=== PATIENT | male | born 1980 | race Two or more races ===

== ENCOUNTER 2021-08-31 22:11 | Emergency (ER) | payer OTHER ==
[~2021-08-31] VITALS: Ht 157.5 cm; Wt 80.3 kg
[2021-09-01 01:00] LABS: Basophils # (auto) 0 10 ^3/uL (0-0.2); Basophils % (auto) 0.3 % (0.0-2.0); Eosinophils # (auto) 0 10 ^3/uL (0-0.8); Eosinophils % (auto) 0.4 % (0.0-7.0); Hematocrit 40.3 % (36.0-46.0); Hemoglobin 13.7 g/dL (12.2-16.2); Lymphocytes # (auto) 0.7 10 ^3/uL (0.4-5.4); Lymphocytes % (auto) 11.2 % (10.0-50.0); Mean Corpuscular Hemoglobin 29.7 pg (28.0-32.0); Mean Corpuscular Volume 87.3 fL (80.0-100.0); Monocytes # (auto) 0.4 10 ^3/uL (0-1.3); Monocytes % (auto) 6.9 % (0.0-12.0); Neutrophils # (auto) 5.1 10 ^3/uL (1.6-8.6); Neutrophils % (auto) 81.2 % (37.0-80.0); Nucleated Red Blood Cells % 0.1 %; Red Blood Cells 4.61 10^6/uL (4.0-5.20); Red Cell Distribution Width 16.9 % (11.8-14.3); White Blood Cell 6.3 10^3/uL (4.4-10.8)
[2021-09-01 01:07] LABS: Albumin 3.8 g/dL (3.4-5.0); Calcium 8.2 mg/dL (8.5-10.1); Magnesium 2.5 mg/dL (1.6-2.6); Potassium 3.7 mmol/L (3.5-5.1)
[2021-09-01 01:09] LABS: BUN/Creatinine Ratio 17.7
[2021-09-01 01:11] LABS: Bilirubin, Total 0.4 mg/dL (0.2-1.0); Total Protein 8.2 g/dL (6.4-8.2)
[2021-09-01] MEDS ORDERED: chlordiazePOXIDE HCL 25 MG CAP PO ONE (02:00)
[2021-09-01] MEDS ORDERED: FAMOTIDINE 20 MG TAB PO ONE (04:15)
[2021-09-01] MEDS ORDERED: LIDOCAINE VISCOUS 2% 15ML UD PO ONE (04:15)
[2021-09-01] MEDS ORDERED: ALUM & MAG HYDROX-SIMETH LIQ(MAALOX) 30 ML PO ONE (04:15)
[2021-09-01 04:28] LABS: Amphetamine Screen, Urine NEGATIVE (NEGATIVE); Barbiturate Scree,Urine NEGATIVE (NEGATIVE); Benzodiazephine Screen, Urine NEGATIVE (NEGATIVE); Cannabinoid Screen, Urine NEGATIVE (NEGATIVE); Cocaine Screen, Urine NEGATIVE (NEGATIVE); Opiate Scree,Urine NEGATIVE (NEGATIVE); Phencyclidine Screen, Urine NEGATIVE (NEGATIVE)
[2021-09-01 04:50] LABS: Urine Bacteria FEW /hpf (None Seen); Urine Blood Negative /uL (Negative); Urine Mucus FEW (None Seen); Urine Specific Gravity 1.036 (1.001-1.035); Urine WBC 1 /hpf (0 - 3)
[2021-09-01] MEDS ORDERED: ONDANSETRON HCL 4 MG/2 ML VIAL IV ONE ×2 (07:15→12:45)
[2021-09-01] MEDS ORDERED: FOLIC ACID 1 MG in D5W 5% 50 ML INJ ONE (07:45)
[2021-09-01] MEDS ORDERED: THIAMINE 100mg/ml INJ (200mg/2ml VIAL) IV ONE (07:45)
[2021-09-01] MEDS ORDERED: LORazepam 2MG/ML-1ML VIAL IV ONE (07:45)
[2021-09-01] MEDS ORDERED: SODIUM CHLORIDE 0.9% 1,000 ML IV ONE ×2 (07:45→12:45)
[2021-09-01] MEDS ORDERED: CHL25C GT (14:28)
[2021-09-01] MEDS ORDERED: PANT1INJ3 IV (14:28)
[2021-09-01] MEDS ORDERED: FOLITAB22 PO (14:28)
[2021-09-01] MEDS ORDERED: METO-281 PO (14:28)
[2021-09-01 14:52] VITALS: BP 143/92
== END 2021-09-01 14:55 | disposition home or self-care (01) ==
LOC: EDSEX 22:11 → ER 22:11
DX: K76.0 Fatty (change of) liver, not elsewhere classified (principal); K42.9 Umbilical hernia without obstruction or gangrene; R74.01 Elevation of levels of liver transaminase levels; K29.20 Alcoholic gastritis without bleeding; F10.230 Alcohol dependence with withdrawal, uncomplicated
CPT/HCPCS: 36415; 74176; 80053; 80307; 80320; 81001; 83735; 85025; 93005; 96361; 96365; 96375; 96376; 99285; J2060; J2405; J3411; J7030; J7060

== ENCOUNTER 2022-06-26 12:14 | Inpatient (IN) | payer MEDICAID, OTHER ==
[~2022-06-26] VITALS: Ht 165.1 cm; Wt 70.0 kg
[~2022-06-26 12:14] MED LIST: CHL25C GT; FOLITAB22 PO; METO-281 PO; PANT1INJ3 IV
[2022-06-26 13:28] LABS: Basophils # (auto) 0.1 10 ^3/uL (0-0.2); Basophils % (auto) 1.2 % (0.0-2.0); Eosinophils # (auto) 0 10 ^3/uL (0-0.8); Eosinophils % (auto) 0.2 % (0.0-7.0); Hematocrit 38.7 % (41.0-53.0); Lymphocytes # (auto) 1.3 10 ^3/uL (0.4-5.4); Lymphocytes % (auto) 17.5 % (10.0-50.0); Mean Corpuscular Hemoglobin 32.9 pg (28.0-32.0); Mean Corpuscular Hgb Conc. 33.7 g/dL (32.0-36.0); Mean Corpuscular Volume 97.8 fL (80.0-100.0); Monocytes # (auto) 0.4 10 ^3/uL (0-1.3); Monocytes % (auto) 5.3 % (0.0-12.0); Neutrophils # (auto) 5.8 10 ^3/uL (1.6-8.6); Neutrophils % (auto) 75.8 % (37.0-80.0); Nucleated Red Blood Cells % 0.1 %; Red Blood Cells 3.96 10^6/uL (4.5-5.90); Red Cell Distribution Width 15.2 % (11.8-14.3); White Blood Cell 7.7 10^3/uL (4.4-10.8)
[2022-06-26] MEDS ORDERED: LACTATED RINGER'S 1,000 ML IV ONE (14:30)
[2022-06-26] MEDS ORDERED: THIAMINE 100mg/ml INJ (200mg/2ml VIAL) IV ONE (14:45)
[2022-06-26] MEDS ORDERED: LORazepam 2MG/ML-1ML VIAL IV ONE (14:45)
[2022-06-26] MEDS ORDERED: chlordiazePOXIDE HCL 25 MG CAP PO ONE (14:45)
[2022-06-26] MEDS ORDERED: FOLIC ACID 1 MG in D5W 5% 50 ML INJ ONE (14:45)
[2022-06-26 15:12] LABS: Albumin 3.2 g/dL (3.4-5.0); BUN/Creatinine Ratio 18.4; Calcium 8.4 mg/dL (8.5-10.1); Magnesium 1.9 mg/dL (1.6-2.6); Potassium 3.2 mmol/L (3.5-5.1)
[2022-06-26 15:15] LABS: Bilirubin, Total 1.6 mg/dL (0.2-1.0)
[2022-06-26] MEDS ORDERED: POTASSIUM CHL 20 Meq TABLET PO ONE (17:30)
[2022-06-26] MEDS ORDERED: ONDANSETRON HCL 4 MG/2 ML VIAL IV PRN (21:30)
[2022-06-26] MEDS ORDERED: DOCUSATE SOD 100 MG CAP PO PRN (21:30)
[2022-06-26] MEDS ORDERED: HYDROcodone-ACET 5/325MG TAB PO PRN (21:30)
[2022-06-26] MEDS ORDERED: IBUPROFEN 400 MG TAB PO PRN (21:30)
[2022-06-26] MEDS ORDERED: LORazepam 2MG/ML-1ML VIAL IV PRN (21:30)
[2022-06-26 23:09] VITALS: BP 116/86
[2022-06-26] MEDS ORDERED: NITROGLYCERIN 0.4 MG SL TAB SL PRN (23:15)
[2022-06-26] MEDS ORDERED: ALBUTEROL SULF 2.5 MG/0.5ML(0.5%) NEB SOLN NEB PRN (23:15)
[2022-06-26] MEDS ORDERED: MORPHINE SULFATE INJ 2 MG/ml SYRG IV PRN ×2 (23:15)
[2022-06-26] MEDS ORDERED: IPRATROPIUM BROM 0.5 MG/2.5ML INH SOL NEB PRN (23:15)
[2022-06-27] MEDS: SODIUM CHLOR 0.9% PF (SALINE LOCK) 10ML VIAL/SYR IV SCH ×4 (02:25→22:48)
[2022-06-27] MEDS ORDERED: FOLIC ACID 1 MG TAB ONE (02:30)
[2022-06-27] MEDS ORDERED: FOLIC ACID 1 MG TAB PO ONE (02:45)
[2022-06-27 05:00] LABS: Urine Bacteria NONE SEEN /hpf (None Seen); Urine Blood Negative /uL (Negative); Urine Mucus FEW (None Seen); Urine WBC 1 /hpf (0 - 3)
[2022-06-27 05:06] LABS: Eosinophils # (auto) 0 10 ^3/uL (0-0.8); Hemoglobin 12.1 g/dL (13.5-17.5); Lymphocytes # (auto) 1.3 10 ^3/uL (0.4-5.4); Mean Corpuscular Hgb Conc. 33.7 g/dL (32.0-36.0); Monocytes # (auto) 0.6 10 ^3/uL (0-1.3); Neutrophils # (auto) 4.8 10 ^3/uL (1.6-8.6)
[2022-06-27 05:08] LABS: Basophils # (auto) 0.1 10 ^3/uL (0-0.2); Basophils % (auto) 1.1 % (0.0-2.0); Eosinophils % (auto) 0.5 % (0.0-7.0); Lymphocytes % (auto) 19.2 % (10.0-50.0); Mean Corpuscular Hemoglobin 33.2 pg (28.0-32.0); Mean Corpuscular Volume 98.7 fL (80.0-100.0); Monocytes % (auto) 8.2 % (0.0-12.0); Red Blood Cells 3.64 10^6/uL (4.5-5.90); Red Cell Distribution Width 15.4 % (11.8-14.3); White Blood Cell 6.8 10^3/uL (4.4-10.8)
[2022-06-27 05:39] LABS: Potassium 3.6 mmol/L (3.5-5.1)
[2022-06-27 05:45] LABS: Albumin 2.8 g/dL (3.4-5.0); BUN/Creatinine Ratio 25.5; Bilirubin, Total 1.6 mg/dL (0.2-1.0); Calcium 7.9 mg/dL (8.5-10.1)
[2022-06-27] MEDS: FOLIC ACID 1 MG TAB PO SCH (10:24)
[2022-06-27] MEDS: FAMOTIDINE (10MG/ML) 2ML VL IV SCH (10:24)
[2022-06-27] MEDS: MULTIPLE VITAMIN TAB PO SCH (10:25)
[2022-06-27] MEDS: THIAMINE HCL 100 MG TAB PO SCH (10:25)
[2022-06-27 11:50] VITALS: BP 127/82
[2022-06-27] MEDS ORDERED: chlordiazePOXIDE HCL 25 MG CAP PO SCH (12:00)
[2022-06-27 12:12] LABS: Amphetamine Screen, Urine NEGATIVE (NEGATIVE); Barbiturate Scree,Urine NEGATIVE (NEGATIVE); Benzodiazephine Screen, Urine NEGATIVE (NEGATIVE); Cannabinoid Screen, Urine NEGATIVE (NEGATIVE); Cocaine Screen, Urine NEGATIVE (NEGATIVE); Opiate Scree,Urine NEGATIVE (NEGATIVE); Phencyclidine Screen, Urine NEGATIVE (NEGATIVE)
[2022-06-27] MEDS: chlordiazePOXIDE HCL 25 MG CAP PO SCH ×2 (16:06→21:07)
[2022-06-27 18:57] LABS: INR 1.08 (0.9-1.15)
[2022-06-27] MEDS: D5W/SOD CHLO 0.9% 1,000 ML IV SCH (19:49)
[2022-06-27 20:00] VITALS: BP 123/91
[2022-06-27 22:00] VITALS: BP 123/91
[2022-06-28 05:00] VITALS: BP 120/84
[2022-06-28] MEDS: chlordiazePOXIDE HCL 25 MG CAP PO SCH ×5 (05:24→15:00)
[2022-06-28] MEDS: D5W/SOD CHLO 0.9% 1,000 ML IV SCH (05:29)
[2022-06-28] MEDS: SODIUM CHLOR 0.9% PF (SALINE LOCK) 10ML VIAL/SYR IV SCH ×2 (05:29→14:01)
[2022-06-28 06:03] LABS: Basophils # (auto) 0.1 10 ^3/uL (0-0.2); Basophils % (auto) 1.9 % (0.0-2.0); Eosinophils # (auto) 0.1 10 ^3/uL (0-0.8); Eosinophils % (auto) 1.5 % (0.0-7.0); Hematocrit 37.6 % (41.0-53.0); Hemoglobin 12.7 g/dL (13.5-17.5); Lymphocytes # (auto) 0.9 10 ^3/uL (0.4-5.4); Lymphocytes % (auto) 13.2 % (10.0-50.0); Mean Corpuscular Hgb Conc. 33.7 g/dL (32.0-36.0); Mean Corpuscular Volume 97.9 fL (80.0-100.0); Monocytes # (auto) 0.5 10 ^3/uL (0-1.3); Monocytes % (auto) 7.2 % (0.0-12.0); Neutrophils # (auto) 5.2 10 ^3/uL (1.6-8.6); Neutrophils % (auto) 76.2 % (37.0-80.0); Nucleated Red Blood Cells % 0.2 %; Red Blood Cells 3.84 10^6/uL (4.5-5.90); Red Cell Distribution Width 14.6 % (11.8-14.3); White Blood Cell 6.8 10^3/uL (4.4-10.8)
[2022-06-28 06:25] LABS: Potassium 3.4 mmol/L (3.5-5.1)
[2022-06-28 06:55] LABS: Albumin 2.8 g/dL (3.4-5.0); BUN/Creatinine Ratio 13.3; Calcium 8.5 mg/dL (8.5-10.1)
[2022-06-28 06:59] LABS: Bilirubin, Total 2.4 mg/dL (0.2-1.0); Total Protein 7.6 g/dL (6.4-8.2)
[2022-06-28 09:00] VITALS: BP 119/78
[2022-06-28] MEDS: MULTIPLE VITAMIN TAB PO SCH (09:07)
[2022-06-28] MEDS: FOLIC ACID 1 MG TAB PO SCH (09:07)
[2022-06-28] MEDS: FAMOTIDINE (10MG/ML) 2ML VL IV SCH (09:08)
[2022-06-28] MEDS: THIAMINE HCL 100 MG TAB PO SCH (09:16)
[2022-06-28] MEDS: SOD CHL 0.9%/ KCL 40MEQ 1,000 ML IV SCH ×2 (09:18→18:07)
[2022-06-28] MEDS ORDERED: SPIRONOLACTONE 25 MG TAB PO SCH (10:00)
[2022-06-28] MEDS: LACTULOSE 20Gm/30ML SOLN PO SCH ×2 (11:51→18:08)
[2022-06-28 12:30] VITALS: BP 135/87
[2022-06-28 16:28] VITALS: BP 105/69
== END 2022-06-28 20:45 | disposition left against medical advice (07) | DRG 280 ==
LOC: ER 12:14 → EDBD 12:14 → TELE 23:05 → TELE-E-ADS 06-27 12:03 → TELE-CENTR 06-27 16:45
PROVIDERS: ADMIT Nurse Practitioner Family; ATTEND Internal Medicine
DX: K70.9 Alcoholic liver disease, unspecified (principal); F10.231 Alcohol dependence with withdrawal delirium; D69.6 Thrombocytopenia, unspecified; E83.51 Hypocalcemia; E88.09 Other disorders of plasma-protein metabolism, not elsewhere classified; D64.9 Anemia, unspecified; J84.10 Pulmonary fibrosis, unspecified; R56.9 Unspecified convulsions; E86.0 Dehydration; Z20.822 Contact with and (suspected) exposure to COVID-19; E87.6 Hypokalemia; E16.2 Hypoglycemia, unspecified; Y90.5 Blood alcohol level of 100-119 mg/100 ml; Z53.29 Procedure and treatment not carried out because of patient's decision for other reasons; I25.10 Atherosclerotic heart disease of native coronary artery without angina pectoris
CPT/HCPCS: 36415; 70450; 71045; 76705; 80053; 80307; 80320; 81001; 82140; 82550; 83735; 83880; 84484; 85025; 85379; 85610; 87426; 93005; 93306; 96361; 96374; 96375; 96376; G0378; J2405; J3490; J7060

== ENCOUNTER 2022-11-20 16:11 | Emergency (ER) | payer MEDICAID ==
[~2022-11-20] VITALS: Ht 165.1 cm; Wt 0.5 kg
[2022-11-20] MEDS ORDERED: THIAMINE 100mg/ml INJ (200mg/2ml VIAL) IV ONE (17:00)
[2022-11-20] MEDS ORDERED: SODIUM CHLORIDE 0.9% 1,000 ML IV ONE (17:00)
[2022-11-20] MEDS ORDERED: ONDANSETRON HCL 4 MG/2 ML VIAL IV ONE (17:00)
[2022-11-20 17:42] LABS: Basophils # (auto) 0.2 10 ^3/uL (0-0.2); Basophils % (auto) 1.9 % (0.0-2.0); Eosinophils # (auto) 0.1 10 ^3/uL (0-0.8); Eosinophils % (auto) 0.7 % (0.0-7.0); Hemoglobin 11.7 g/dL (13.5-17.5); Lymphocytes # (auto) 2.9 10 ^3/uL (0.4-5.4); Mean Corpuscular Hemoglobin 32.4 pg (28.0-32.0); Mean Corpuscular Hgb Conc. 33.3 g/dL (32.0-36.0); Mean Corpuscular Volume 97.4 fL (80.0-100.0); Monocytes # (auto) 0.6 10 ^3/uL (0-1.3); Monocytes % (auto) 7.5 % (0.0-12.0); Neutrophils # (auto) 4.3 10 ^3/uL (1.6-8.6); Neutrophils % (auto) 53.9 % (37.0-80.0); Nucleated Red Blood Cells % 0.1 %; Red Cell Distribution Width 17.8 % (11.8-14.3)
[2022-11-20 17:43] VITALS: TEMP 97.9
[2022-11-20 17:43] LABS: Albumin 2.7 g/dL (3.4-5.0); Calcium 7.3 mg/dL (8.5-10.1); Potassium 3.3 mmol/L (3.5-5.1)
[2022-11-20] MEDS: FOLIC ACID 1 MG, MULTIPLE VITAMIN 10 ML, MAGNESIUM SULF SDV 50% 8 MEQ, THIAMINE INJ 100... INJ SCH ×10 (17:43→19:01)
[2022-11-20 17:49] LABS: BUN/Creatinine Ratio 15.3 (10.0-20.0); Bilirubin, Total 1.4 mg/dL (0.2-1.0); Total Protein 8.1 g/dL (6.4-8.2)
[2022-11-20] MEDS ORDERED: FOLIC ACID 1 MG, MULTIPLE VITAMIN 10 ML, MAGNESIUM SULF SDV 50% 8 MEQ, THIAMINE INJ 100... INJ ONE ×5 (18:00)
[2022-11-20 18:35] LABS: Urine Bacteria NONE SEEN /hpf (None Seen); Urine Blood 1+ /uL (Negative); Urine Clarity Clear (Clear); Urine Color Yellow (Yellow); Urine Mucus FEW (None Seen); Urine Protein, UAD 2+ (Negative); Urine Specific Gravity 1.024 (1.001-1.035); Urine WBC 2 /hpf (0 - 3)
[2022-11-20 18:52] LABS: Amphetamine Screen, Urine NEGATIVE (NEGATIVE); Barbiturate Scree,Urine NEGATIVE (NEGATIVE); Benzodiazephine Screen, Urine POSITIVE (NEGATIVE); Cannabinoid Screen, Urine NEGATIVE (NEGATIVE)
[2022-11-20 19:05] LABS: Cocaine Screen, Urine NEGATIVE (NEGATIVE); Opiate Scree,Urine NEGATIVE (NEGATIVE); Phencyclidine Screen, Urine NEGATIVE (NEGATIVE)
[2022-11-20] MEDS ORDERED: POTASSIUM CHL 20MEQ/100ML 100 ML IV SCH (19:45)
[2022-11-20] MEDS ORDERED: CALCIUM GLUC 1,000mg/50ml-NS 50 ML IV ONE (19:45)
[2022-11-21] MEDS ORDERED: IBUP-1455 PO (01:08)
[2022-11-21] MEDS ORDERED: ACET500T58 PO (01:08)
[2022-11-21] MEDS ORDERED: KETOROLAC TROMETH 30 MG/ML 1ML VIAL IV ONE (01:15)
[2022-11-21 01:20] VITALS: PULSE 69; RESP 18; O2SAT 95
[2022-11-21] MEDS: POTASSIUM CHL 20MEQ/100ML 100 ML IV SCH ×4 (02:30→05:00)
[2022-11-21 06:00] VITALS: BP 95/59; PULSE 63; RESP 15; O2SAT 93
== END 2022-11-21 06:58 | disposition home or self-care (01) ==
LOC: EDBD 16:11 → ER 16:11
DX: G89.29 Other chronic pain (principal); M54.9 Dorsalgia, unspecified; F10.129 Alcohol abuse with intoxication, unspecified; E87.6 Hypokalemia; E83.51 Hypocalcemia; Y90.8 Blood alcohol level of 240 mg/100 ml or more
CPT/HCPCS: 36415; 80053; 80307; 80320; 81001; 83880; 85025; 93005; 96365; 96366; 96367; 96375; 99284; J0610; J1885; J2405; J3411; J3475; J3480; J7030